=== PATIENT | male | born 1960 | race Caucasian/White ===

== ENCOUNTER 2019-11-19 04:16 | Emergency (ER) | payer OTHER ==
[~2019-11-19] VITALS: Ht 182.9 cm; Wt 97.5 kg
[2019-11-19] MEDS ORDERED: KETO10TA2 PO (07:43)
[2019-11-19] MEDS ORDERED: ORPHENADRINE C100 MG PO (07:43)
== END 2019-11-19 07:56 | disposition home or self-care (01) ==
LOC: ER 04:16
DX: M54.5 Low back pain (principal)

== ENCOUNTER 2022-10-12 12:32 | Emergency (ER) | payer OTHER ==
[~2022-10-12] VITALS: Ht 182.9 cm; Wt 99.8 kg
[~2022-10-12 12:32] MED LIST: KETO10TA2 PO; ORPHENADRINE C100 MG PO
== END 2022-10-12 21:10 | disposition home or self-care (01) ==
LOC: ER 12:32
DX: R10.84 Generalized abdominal pain (principal); K57.90 Diverticulosis of intestine, part unspecified, without perforation or abscess without bleeding